=== PATIENT | male | born 1985 | race African-American/Black ===

== ENCOUNTER 2021-11-08 23:50 | Emergency (ER) | payer BC, SELFPAY ==
--- NOTE | ~2021-11-08 | XR_ITS ---
EXAMINATION: XR hand RT min 3V DATE: 11/09/2021 01:52 INDICATION: Right hand laceration from broken glass. TECHNIQUE: 3 views of right hand were obtained. COMPARISON: None. FINDINGS: Bone alignment is normal. There are densities measuring up to 2 mm dorsal to tuft of first distal phalanx. 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 IMPRESSION: 1. Small densities dorsal to tuft of first distal phalanx, which may be radiopaque foreign bodies and /or tuft fracture fragments. Reviewed, dictated and finalized at location A. IMPRESSION: 1. Small densities dorsal to tuft of first distal phalanx, which may be radiopa que foreign bodies and/or tuft fracture fragments.
--- NOTE | ~2021-11-08 | XR_ITS ---
EXAMINATION: XR finger 1st RT min 2V DATE: 11/09/2021 03:24 INDICATION: Right thumb foreign body. TECHNIQUE: 3 views of right thumb were obtained. COMPARISON: None. FINDINGS: Bone alignment is normal. There are densities measuring up to 2 mm dorsal to the tuft of fi rst distal phalanx. Joint spaces are normal. IMPRESSION: 1. Densities measuring up to 2 mm dorsal to the tuft of first distal phalanx, which may be radiopaque foreign bodies and/or tuft fracture fragments. Reviewed, dictated and finalized at location A. IMPRESSION: 1. Densities measuring up to 2 mm dorsal to the tuft of first distal phalanx, w hich may be radiopaque foreign bodies and/or tuft fracture fragments.
[2021-11-09 00:31] VITALS: BP 124/92; PULSE 92; RESP 18; TEMP 36.4; O2SAT 99
--- NOTE | 2021-11-09 01:43 | ED.WOUNDLAC ---
HPI - Wound/Laceration General Chief Complaint: Wound/Laceration <Mary Rizvi PA-C - Last Filed: 11/09/21 03:42> Stated Complaint: laceration to Right hand <Mary Rizvi PA-C - Last Filed: 11/09/21 03:42> Time Seen by Provider: 11/09/21 00:54 <Mary Rizvi PA-C - Last Filed: 11/09/21 03:42> Source: patient <JOSE DANIEL Garcia Last Filed: 11/09/21 03:42> Mode of arrival: ambulatory <Mary Rizvi PA-C - Last Filed: 11/09/21 03:42> Limitations: no limitations <Mary Rizvi PA-C - Last Filed: 11/09/21 03:42> History of Present Illness HPI narrative: This is a 36-year-old male who presents to the emergency department for right hand injury sustained just prior to arrival. Reports a picture was falling off the wall. He tried to catch it and sustained a laceration to the right thumb and middle finger from broken glass. He is not up-to-date on tetanus. Denies decreased range of motion or numbness. <Mary Rizvi PA-C - Last Filed: 11/09/21 03:42> Related Data Allergies/Adverse Reactions: Allergies Allergy/AdvReac Type Severity Reaction Status Date / Time No Known Allergies Allergy Mild Verified 05/05/09 18:13 <Mary Rizvi PA-C - Last Filed: 11/09/21 03:42> Review of Systems Review of Systems: CONSTITUTIONAL: Denies fever SKIN: Reports laceration NEUROLOGIC: Denies numbness <Mary Rizvi PA-C - Last Filed: 11/09/21 03:42> All systems reviewed & are unremarkable except as noted in HPI and below <JOSE DANIEL Garcia Last Filed: 11/09/21 03:42> [facility]LY [facility] Past Medical History Medical History: Medical History (Updated 11/09/21 @ 03:34 by Mary Rizvi PA-C) No active medical problems <Mary Rizvi PA-C - Last Filed: 11/09/21 03:42> Social History Social History: Social History (Updated 05/03/19 @ 09:40 by Sharad Schaefer, JOSE DANIEL) Smoking status: Current every day smoker <Mary Rizvi PA-C - Last Filed: 11/09/21 03:42> Exam Narrative: GENERAL: Well-appearing, well-nourished, and in no acute distress. HEAD: Normocephalic, atraumatic. EYES: EOMI. EXTREMITIES: Normal range of motion. No edema. Right 1st finger with 2cm linear laceration to the distal phalanx that involves part of the nail. Right 3rd finger at PIP joint dorsal surface with 1cm irregular laceration into subcutaneous tissue. Normal sensation SKIN: Warm, dry, no rash. NEURO: No focal deficits. Alert and oriented x3. PSYCH: Normal mood and affect <Mary Rizvi PA-C - Last Filed: 11/09/21 03:42> Course [employer]E WASHER/PA Physician Supervision I saw and evaluated this patient myself, imaging reviewed. I agree with the care plan <Shaun Sneed MD - Last Filed: 11/09/21 06:45> Vital Signs Vital signs: Vital Signs Temperature 36.4 C L 11/09/21 00:31 Pulse Rate 92 11/09/21 00:31 Respiratory Rate 18 11/09/21 00:31 Blood Pressure 124/92 H 11/09/21 00:31 Pulse Oximetry 99 11/09/21 00:31 Oxygen Delivery Room Air 11/09/21 00:31 Temperature 36.4 C L 11/09/21 00:31 Pulse Rate 81 11/09/21 04:02 Respiratory Rate 16 11/09/21 04:02 Blood Pressure 127/94 H 11/09/21 04:02 Pulse Oximetry 99 11/09/21 04:02 Oxygen Delivery Room Air 11/09/21 00:31 <Mary Rizvi PA-C - Last Filed: 11/09/21 03:42> Vital Signs Temperature 36.4 C L 11/09/21 00:31 Pulse Rate 92 11/09/21 00:31 Respiratory Rate 18 11/09/21 00:31 Blood Pressure 124/92 H 11/09/21 00:31 Pulse Oximetry 99 11/09/21 00:31 Oxygen Delivery Room Air 11/09/21 00:31 Temperature 36.4 C L 11/09/21 00:31 Pulse Rate 81 11/09/21 04:02 Respiratory Rate 16 11/09/21 04:02 Blood Pressure 127/94 H 11/09/21 04:02 Pulse Oximetry 99 11/09/21 04:02 Oxygen Delivery Room Air 11/09/21 00:31 <Shaun Sneed MD - Last Filed: 11/09/21 06:45> Procedures Laceration Laceration 1: Date: 11/09/21 <Mary Hernandez H
--- NOTE | 2021-11-09 02:00 | PC.NURSE ---
PARESH Hernandez, at bedside to place sutures.
[2021-11-09] MEDS: TETANUS,DIPHTHERIA,AC PERTUSSIS ADULT (0.5 ML) BOOSTRIX IM (02:07)
--- NOTE | 2021-11-09 03:27 | PC.NURSE ---
Report to GAGAN Baer, to continue care.
[2021-11-09 04:02] VITALS: BP 127/94; PULSE 81; RESP 16; O2SAT 99
== END 2021-11-09 04:03 | disposition home or self-care (01) ==
PROVIDERS: Emergency Provider Emergency Medicine
DX: S61.011A Laceration without foreign body of right thumb without damage to nail, initial encounter (principal); S61.212A Laceration without foreign body of right middle finger without damage to nail, initial encounter; Z23 Encounter for immunization; F17.200 Nicotine dependence, unspecified, uncomplicated; W25.XXXA Contact with sharp glass, initial encounter
CPT/HCPCS: 12002; 73130; 73140; 90471; 90715; 99283